=== PATIENT | female | born 1970 | race Caucasian/White ===

== ENCOUNTER 2022-02-27 05:50 | Emergency (ER) | payer BC ==
[2022-02-27] MEDS ORDERED: Acetaminophen/HYDROcodone 325-7.5 MG Tab PO ONE (06:16)
== END 2022-02-27 07:10 | disposition home or self-care (01) ==
LOC: JP.ED 05:50
DX: S92.531A Displaced fracture of distal phalanx of right lesser toe(s), initial encounter for closed fracture (principal); Z88.1 Allergy status to other antibiotic agents; Z88.0 Allergy status to penicillin; Z91.041 Radiographic dye allergy status; Z91.013 Allergy to seafood; Z86.16 Personal history of COVID-19; W22.09XA Striking against other stationary object, initial encounter
CPT/HCPCS: 73630; 99283; A9270; 99281